=== PATIENT | female | born 1950 | race Caucasian/White ===

== ENCOUNTER → 2023-03-15 12:44 | Outpatient (CLI) | payer MEDICARE, SELFPAY ==
[2023-03-15 13:36] LABS: Add Manual Diff / Slide Review NO; Basophils Absolute Auto 100 /uL (0-100); Basophils Percent Auto 1.1 % (0-2); Eosinophils Absolute Auto 0 /uL (0-450); Eosinophils Percent Auto 0.9 % (2-4); Hematocrit 35.3 % (36-46); Hemoglobin 12.2 g/dL (12.0-16.0); Lymphocytes Absolute Auto 1400 /uL (1100-4500); Lymphocytes Percent Auto 26.1 % (25-40); Mean Corpuscular HGB Conc 34.6 % (30-36); Mean Corpuscular Hemoglobin 29.2 PG (26-34); Mean Corpuscular Volume 84.6 fL (80-100); Monocytes Absolute Auto 300 /uL (0-900); Monocytes Percent Auto 6.3 % (3-14); Neutrophils Absolute Auto 3400 /uL (1500-7000); Neutrophils Percent Auto 65.6 % (50-75); Platelet Count 202 X10^3/uL (150-400); Red Blood Cell Count 4.17 X10^6/uL (4.0-5.2); Red Cell Distribution Width 13.9 % (11.6-14.8); White Blood Cell Count 5.2 X10^3/uL (4.5-11.0)
[2023-03-15 14:00] LABS: BUN Creatinine Ratio 18.5 (6-22); Blood Urea Nitrogen 15 mg/dL (7-17); Calcium 9.3 mg/dL (8.4-10.2); Carbon Dioxide 27 mmol/L (22-32); Chloride 102 mmol/L (98-107); Estimated Glomerular Filt Rate > 60 mL/min (>60); Glucose 83 mg/dL (80-110); HEMOLYSIS 20 (0-50); Potassium 3.7 mmol/L (3.4-5.1); Sodium 136 mmol/L (137-145)
== END ==
PROVIDERS: PCP Family Medicine; Referring Provider Orthopaedic Surgery; Visit Provider Orthopaedic Surgery
DX: Z01.818 Encounter for other preprocedural examination (principal); Z01.812 Encounter for preprocedural laboratory examination
CPT/HCPCS: 36415; 80048; 85025; 93005; 93010

== ENCOUNTER 2023-04-01 09:58 | Inpatient (IN) | payer MEDICARE, SELFPAY ==
[2023-03-31 07:52] VITALS: BMI 24.5
[2023-04-01] VITALS (12 sets, daily range): BP systolic 123–180; BP diastolic 62–98; PULSE 64–82; RESP 11–17; TEMP 35.7–36.2; O2SAT 91–100; BMI 24.5
--- NOTE | 2023-04-01 06:00 | DI.RAD.S_ITS ---
PROCEDURE: XR SHOULDER RT 1V INDICATIONS: post-op TECHNIQUE: 1 views of the shoulder were acquired. COMPARISON: None. FINDINGS: Bones: Normal alignment of the right shoulder arthroplasty. Soft tissues: Superficial surgical changes present and appropriate. IMPRESSION: Right shoulder arthroplasty. Dictated by: Elias Holley M.D. on 04/01/2023 at 17:26 Approved by: Elias Holley M.D. on 04/01/2023 at 17:27
--- NOTE | 2023-04-01 10:06 | PM.PREOP ---
Pre-operative Note Interval Note History & Physical reviewed/Exam performed by Physician: Yes Changes to H&P: No
[2023-04-01] MEDS: LACTATED RINGERS 1,000 ML 42 ML IV ×2 (10:36→12:17)
[2023-04-01] MEDS: ACETAMINOPHEN 325 MG TABLET 975 MG PO (10:37)
[2023-04-01] MEDS: CEFAZOLIN 2 GM/100 ML PREMIX 100 ML IV ×2 (10:43→18:20)
[2023-04-01] MEDS: TRANEXAMIC ACID 1,000 MG VIAL 1000 MG INJ (11:05)
--- NOTE | 2023-04-01 11:23 | SUR.OPER ---
Beach chair with skytron shoulder positioner. Lower body on padded OR bed. Head in foam padded head cradle, secured with straps. Non-operative arm secured <90 degrees abduction. Pillow under knees. Safety belt at thigh. Cloth tape over blanket over lower legs.
[2023-04-01] MEDS: ROPIVACAINE/EPI/CLONIDINE/KET 50 ML SYRINGE INJ (11:34)
--- NOTE | 2023-04-01 12:15 | P.OP_ITS ---
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 Symptoms have been present for years, she never fully recovered from her initial surgery. Patient has failed conservative therapy including injections, physical therapy, anti-inflammatories and activity modification. After extensive discussion in clinic, they wished to go forward with surgery. Risks and benefits were described including the risk of infection, bleeding, damage to internal structures including nerves. We also discussed the risk of failure of surgery and the need for revision surgery as well as the risk of anesthesia. The patient expressed understanding with these risks and wished to go forward with surgery. Surgeon: Alin [facility] Teacher: Calixto Morse Anesthesia Type: General Operative Notes Findings: Findings: Intact supraspinatus and infraspinatus, insufficient subscap tendon, significant and eccentric wear of the glenoid Closure Type: primary Specimen(s): none sent Prosthetic devices, grafts, tissues, transplants, or devices: Tornier implants Base plate: standard 25 mm, full wedge Glenosphere: Standard 36 mm Stem: Perform 2+ Poly: +3 Estimated Blood Loss (mL): 50 Blood products transfused: none Procedure in detail: Patient was seen in the preoperative holding unit. The correct right shoulder was identified and marked with my initials. Again we discussed the risks and benefits of surgery and they wished to go forward with surgery. The patient was brought back to the operating room and placed supine on the operating table. Smooth endotracheal intubation was performed by anesthesia. All prominences were padded and they were placed into the beach chair position. Intravenous antibiotics were given. The right shoulder was then prepped with the standard sterile preparation and draping. A time-out was then performed in my initials were again identified on the correct shoulder. 1 g of IV tranexamic acid was given. A standard deltopectoral incision was made. Skin flaps were made. The cephalic vein was identified and retracted laterally. This was protected throughout the remainder of the case. Sharp dissection was made along the deltoid, subacromial and subcoracoid space to release adhesions. The conjoined tendon was identified and the axillary nerve was palpated and continuous using the tug test. It was protected throughout the remainder of the case. A brown retractor was placed underneath the deltoid muscle and a darach retractor underneath the conjoint tendon. The anterior circumflex artery and associated veins on the lower border of the subscapularis were identified and tied off using 0-Vicryl. The biceps tendon was identified in the bicipital groove. It had a previous tenodesis next to the old prosthesis. This was released from its sheath tied into the pectoralis tendon for a solid tenodesis. We then began a subscapularis peel from the remaining fibers however majority of the subscap was non-existent at this point. The coracoacromial ligament was left intact. The shoulder was then dislocated. The previous Farooq implant was then removed using a saw and osteotome. The rotator cuff was noted to be intact with regards to the supraspinatus. An intramedullary guide was used set at version of 20 ?. Using an oscillating saw a conservative humeral head cut was made. Impaction reamers were reamed up to a size 2 stem with a built-in angle 135?. A neck protector was placed. Attention was then turned to the glenoid. After retracting the humeral head posteriorly a circumferential release was performed of the capsule with protection of the axillary nerve. The labrum was then released starting at the biceps anchor and going around the rim a small amount of triceps was released from the inferior glenoid. A center guide pin was then placed using the guide, followed by Reamer. After adequate cartilage was removed the center drill hole was drilled and measured. The base plate was then implanted and screwed into place. The superior drill hole was drilled and filled in a nonlocking fashion, followed by the inferior and anterior holes in locking fashion, the posterior hole was also filled. A 36 standard glenosphere was then selected and screwed into place onto the base plate. Turning back to the humerus, the humeral head was delivered and trialed with a 0 concentric. The arm was taken through range of motion and this was felt to be stable. The trial was then removed and a dilute Betadine wash was then performed with 1 L of sterile saline. The final stem was then impacted into the humerus. The shoulder was then reduced and again brought through range of motion and was felt to be stable. As the subscapularis was insufficient, no repair was done. She had a good intact vein and so deltopectoral interval was not closed over top. The skin was closed with 2-0 Vicryl and Monocryl followed by Aquacel dressing. Patient was awoken from anesthesia and brought back to the postoperative recovery unit without issue. They were placed into a sling. Assisting participation: This operation could not have been safely performed (without compromising the technical results or length of the procedure) without the assistance of a skilled surgical specialist. The surgical specialist was medically necessary for proper positioning, retraction and manipulation of instruments, proper exposure, graft prep, and manipulation of tissue. Complications: none Post-operative Condition: stable Disposition: PACU Plan for aftercare: Postoperative instructions: Sling to remain on for 6 weeks. No external rotation past neutral for 6 weeks. Okay for the sling to come off for shower. Okay to shower over the Aquacel dressing. If any water gets underneath the dressing, remove the dressing. First postoperative visit in 2 weeks.
[2023-04-01] MEDS: IBUPROFEN 600 MG TABLET PO ×2 (13:48→17:49)
[2023-04-01] MEDS: OXYCODONE IR 5 MG TABLET PO ×2 (14:56→17:49)
--- NOTE | 2023-04-01 15:49 | PT-IP ANOTE ---
PT reviewed chart and checked on pt who is very lethargic and can only whisper at this time. There are no labs available and pt is very pale. Spoke with nsg and PT and nsg agree to hold PT this afternoon d/t pt presentation. Con't efforts next date.
[2023-04-01] MEDS: ASPIRIN EC 81 MG TABLET PO (21:57)
[2023-04-02] VITALS: BP 94/51; PULSE 60; RESP 17; TEMP 35.9; O2SAT 96
[2023-04-02] MEDS: IBUPROFEN 600 MG TABLET PO ×3 (00:31→11:41)
[2023-04-02] MEDS: OXYCODONE IR 5 MG TABLET PO (00:33)
[2023-04-02] MEDS: CEFAZOLIN 2 GM/100 ML PREMIX 100 ML IV (02:54)
[2023-04-02 04:00] VITALS: BP 106/60; PULSE 66; RESP 17; TEMP 35.7; O2SAT 95
[2023-04-02 04:34] LABS: Hematocrit 31.1 % (36-46); Hemoglobin 10.7 g/dL (12.0-16.0); Mean Corpuscular HGB Conc 34.4 % (30-36); Mean Corpuscular Hemoglobin 30.2 PG (26-34); Mean Corpuscular Volume 87.9 fL (80-100); Platelet Count 173 X10^3/uL (150-400); Red Blood Cell Count 3.54 X10^6/uL (4.0-5.2); Red Cell Distribution Width 14.3 % (11.6-14.8); White Blood Cell Count 9.3 X10^3/uL (4.5-11.0)
[2023-04-02 07:00] VITALS: BP 119/54; PULSE 59; RESP 16; TEMP 36.1; O2SAT 97
--- NOTE | 2023-04-02 07:55 | P.DS_ITS ---
History of Present Illness History of Present Illness Chief complaint: INPT Narrative: Marita is a pleasant 73-year-old female who is postop day #1 s/p Revision RIGHT shoulder hemiarthroplasty to a reverse total shoulder arthroplasty (glenoid and humeral side) by Dr. Mccurdy. She reports she is doing well overall, mild pain well controlled with oral pain medication. Reports that she had a very good night sleep last night after surgery. States she has her postop medications picked up already and plans to not use the oxycodone if she can avoid it, she will primarily manage her pain with ibuprofen and Tylenol alone. Has postop physical therapy appointment set up with Ruby RODRIGUEZ, 1st appointment is in about 10 days from now. Patient does live alone normally but plans to stay with a friend after coming home from the hospital and reports she has a large support system at home that will help her during her postop recovery peroid. She would like to be d/c to home today. Denies fever, chills, chest pain, shortness of breath, nausea, vomiting. 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 Symptoms have been present for years, she never fully recovered from her initial surgery. Patient has failed conservative therapy including injections, physical therapy, anti-inflammatories and activity modification. After extensive discussion in clinic, they wished to go forward with surgery. Risks and benefits were described including the risk of infection, bleeding, damage to internal structures including nerves. We also discussed the risk of failure of surgery and the need for revision surgery as well as the risk of anesthesia. The patient expressed understanding with these risks and wished to go forward with surgery. Surgeon: Alin Mccurdy Medical Editor: Calixto Morse Anesthesia Type: General Discharge Providers Provider Date of admission: 04/01/23 09:58 Discharge Date: 04/02/23 Primary care physician: Anay Stark MD Consults: 04/01/23 06:00 Consult to Anesthesiology Routine Comment: Consulting Provider: Anesthesiologist Reason for consultation: Regional block for post operative pain control 04/01/23 12:23 Consult to Discharge Planning Routine Comment: Consult to Physical Therapy Evaluate & Treat Comment: Physician Instructions: Evaluate and Treat Discharge provider: Lauren Soriano PA-C Summary Hospital Course Discharge Diagnosis: Stable s/p Revision right shoulder hemiarthroplasty to a reverse total shoulder arthroplasty Hospital Course: Uncomplicated hospital course Exam Vital Signs (past 8 hours): - 04/02/23 00:00 04/02/23 04:00 Temperature 96.7 F L 96.2 F L Pulse Rate 60 66 Respiratory Rate 17 17 Blood Pressure 94/51 L 106/60 Pulse Oximetry 96 95 Oxygen Flow Rate 0 0 Oxygen Delivery Method Room Air Oxygen Flow Rate 0 Narrative Exam Narrative: Lying comfortably in bed with right shoulder sling on. Const General: cooperative, healthy appearing and comfortable Resp Effort & Inspection: normal respiratory effort and able to speak in complete sentences Cardio Rate: regular rate Other: Extremities appear well perfused. Brisk capillary refill. Skin Other: Clean and dry Aquacel dressing over the right anterior shoulder. Neuro General: patient alert, patient awake and patient oriented x3 Speech: speech normal Other: Sensation intact throughout the right upper extremity. Objective Labs 04/02/23 04:00 Labs: Laboratory Results - last 24 hr 04/02/23 04:00 WBC 9.3 RBC 3.54 L Hgb 10.7 L Hct 31.1 L MCV 87.9 MCH 30.2 MCHC 34.4 RDW 14.3 Plt Count 173 PFSH Medical History (Updated 03/31/23 @ 08:15 by Mariam Resendiz RN) History of COVID-19 (~02/2023) Arthritis Eczema Anxiety Bleeds easily Easy bruisability Surgical History (Updated 03/31/23 @ 08:08 by Mariam Resendiz RN) History of carpal tunnel surgery of right wrist Hx of shoulder surgery (06/2020) Hx of blepharoplasty Hx of bilateral cataract extraction Social History household members: none Smoking Status: Former smoker alcohol intake: current Discharge Assessment & Plan Assessment and Plan Assessment: Stable s/p revision right shoulder hemiarthroplasty to a reverse total shoulder arthroplasty (glenoid and humeral side) Plan of Treatment: 1) Sling to remain on for 6 weeks (okay for the sling to come off to shower). No external rotation past neutral for 6 weeks. Continue to work on range of motion as indicated with outpatient PT. 2) Keep dressing intact, clean, dry until 2 week postop appointment. Okay to shower over the Aquacel dressing. If any water gets underneath the dressing, remove the dressing and replaced with clean dry gauze or contact office for replacement dressing. 3) Continue multimodal pain management. Ice to the shoulder for additional pain control. ASA b.i.d. for 4 weeks. Patients postop has prescriptions have been picked up already. Colace Rx sent today. 4)First postoperative visit in 2 weeks at [facility] orthopedics. Discharge Plan Discharge Plan Patient Disposition: Home Discharge orders & Medications Prescriptions: New hydrocodone-acetaminophen 5-325 mg tablet 1 tab PO Q6H PRN (Reason: pain) Qty: 20 0RF aspirin 81 mg tablet,chewable 81 mg PO BID 28 Days Qty: 56 0RF ibuprofen 600 mg tablet 600 mg PO Q6H PRN (Reason: pain) Qty: 60 0RF aspirin 81 mg Tablet,Delayed Release (Dr/Ec) 81 mg PO BID Qty: 90 0RF docusate sodium 100 mg Capsule 100 mg PO BID PRN (Reason: constipation) Qty: 30 0RF ibuprofen 600 mg Tablet 600 mg PO Q6H Qty: 90 0RF ondansetron 4 mg Tablet,Disintegrating 4 mg PO Q4HR PRN (Reason: Nausea And Vomiting) 14 Days Qty: 14 0RF oxycodone 5 mg Tablet 5 mg PO Q4-6H PRN (Reason: Pain, Moderate (4-6)) Qty: 30 0RF Continued escitalopram oxalate 10 mg Tablet 10 mg PO DAILY Medication counseling provided by Pharmacist: Yes Pharmacist Comment: You can mix Oxycodone and acetaminophen together or take separately. Max acetaminophen a day is 3,00mg. Max Ibuprofen a day is 2,400mg. Follow up/Referrals: Lauren Soriano PA-C [[employer]] - Alin Mccurdy MD [Physician] - (Follow up in 2 weeks as scheduled. ) Anay Stark MD [Primary Care Provider] - Diet/Activity/Treatments Diet: Diet as Tolerated Activity: Sling to remain on for 6 weeks. No external rotation past neutral for 6 weeks. Okay for the sling to come off for shower. Work with outpatient physical therapy on appropriate range of motion exercises. Cold/Heat Therapy: Ice to the shoulder for additional pain control Skin/Wound/Dressing Care Report to your healthcare provider any signs of infection, such as:: chills, fever, night sweats, unusual drainage and unusual redness Dressing: Aquacel dressing to remain in place for 2 weeks, keep dressing clean and dry. Okay to shower over the Aquacel dressing. If any water gets underneath the dressing, remove the dressing and replace with clean and dry gauze or call our office for replacement dressing. Visit Report/Discharge Packet Instructions: DI for Prescription Opioid Use, DI for Shoulder Replacement Stand Alone Forms: Patient Portal/API, Stroke Signs & Symptoms Discharge Data Primary Care Provider: Anay Stark VTE Deep Vein Thrombosis/Pulmonary Embolism Present on Admission: No
[2023-04-02] MEDS: DOCUSATE 100 MG CAPSULE PO (08:04)
[2023-04-02] MEDS: ASPIRIN EC 81 MG TABLET PO (08:04)
[2023-04-02] MEDS: polyethylene glycoL 3350 17 GM POWD.PACK PO (08:04)
--- NOTE | 2023-04-02 08:50 | PT.IIE ---
Current Diagnoses Presence of right artificial shoulder joint (04/01/23) Surgery Performed Operation Date: 04/01/23 10:15 Actual Procedures p Total Shoulder Arthroplasty - Reverse with biceps tenodesis(Right) - Alin Mccurdy MD Surgical History (Last Updated 03/31/23 @ 08:08 by Mariam Resendiz, RN) History of carpal tunnel surgery of right wrist Hx of bilateral cataract extraction Hx of blepharoplasty Hx of shoulder surgery (06/2020) Medical History (Last Updated 03/31/23 @ 08:15 by Mariam Resendiz RN) Anxiety Arthritis Bleeds easily Easy bruisability Eczema History of COVID-19 (~02/2023) Physical Therapy Inpatient Evaluation/Re-Eval M1 PT/OT-IP Prior Functional Status Start: 04/01/23 15:36 Freq: NEEDED Status: Active Protocol: Document 04/02/23 08:50 AB (Rec: 04/02/23 12:30 AB [id number]) Medical Review Prior Functional Status Medical History Reviewed Yes Communication able to make needs known Mobility and Gait pt stated that she was independent with all mobilities and ambulation without AD Social History Household Members none Living Arrangements House Number of Floors (Floors) Two Floors Number of Stairs To Enter/Railing? pt plans to go to her brother' s house upon d/c. info below is regarding brother's home set up pt plans to stay on the main level of the house no steps to enter Home Environment High Toilet,Tub/Shower Home Equipment Straight Cane,Lift Recliner, Grab Bars In Shower Additional Social History Comment pt plans to go to her brother' s house and family can assist her pt plans to do sponge bathing and sleep on a lift chair M2 PT-IP Current Condition Start: 04/01/23 15:36 Freq: NEEDED Status: Active Protocol: Document 04/02/23 08:50 AB (Rec: 04/02/23 12:30 AB [id number]) Physical Therapy Current Condition Current Condition Evaluation Date 04/02/23 Treatment Diagnosis s/p R TSA reverse; difficulty in walking Onset Date 04/01/23 M3 PT-IP Subjective Start: 04/01/23 15:36 Freq: NEEDED Status: Active Protocol: Document 04/02/23 08:50 AB (Rec: 04/02/23 12:30 AB [id number]) Subjective Physical Therapy Visit Type Type Initial Evaluation Visit Start Time 08:50 Visit Stop Time 10:10 Number of VASCULAR NEUROLOGIST Visits 0 Physical Therapy Visit Comments Patient Comments initially stating that she does not think she need PT and also concerned about payment; pt eventually agreed to PT Therapy Pain Assessment Pain When Pain Assessed At Rest Pain Present Pain Present Pain Reported Location Right Shoulder Intensity 2 Scale Used Numeric (0 - 10) Pain Management Techniques Distraction,Modification of Treatment,Re-positioning, Timing of Activity with Medications M4 PT-IP Mobility and Gait Start: 04/01/23 15:36 Freq: NEEDED Status: Active Protocol: Document 04/02/23 08:50 AB (Rec: 04/02/23 12:30 AB [id number]) PT-Bed Mobility Assessment Supine to Sit Supine to Sit Moderate Assistance PT-Transfer Assessment Sit to and From Stand Sit to and from Stand Contact Guard Assistance,Use of Upper Extremities Equipment Transfer Assistive Device None,Gait Belt Orthotic/Prosthetic Devices or Brace: Yes Transfers Transfer Destination Toilet Transfer Technique ambulated Transfer Ability Level of Assist Contact Guard Assistance, Minimal Assistance,1 Person Assistance,Use of Upper Extremities Comments Mobility Comments pt spinein bed. sling on. initially stated that she does not think she need PT. explained to pt regarding PT in hospital and d/c plans and safety. pt agreed to do PT. educated pt on shoulder precautions, pendulum exercises, elbow/wrist/hand exercises. pt stated that she really needs to use the the toilet. completed supine to sit HOB elevated mod A and cues. able to sit on EOB SBA. completed sit to stand CGA and ambulated to the toilet without AD initially CGA but with (+) LOB x 3 requiring min A for recovery and safety. pt completed toileting SBA. sit to stand from the toilet CGA and ambulated to the sink without AD CGA to min A. continues to have an unsteady gait. pt sat on the chair. educated on sling management and assisted with adjustment. completed elbow/hand/wrist exercises. pt c/o feeling faint. positioned on the chair and reclined. BP checked: 107/55. reclined pt further and pt rested. assisted pt with sling management. call light and table placed within reach. BP checked again: 113/65 set up caregiver training this afternoon at 1 pm. Gait Assessment Gait Gait Assistance Required: Contact Guard Assist,Minimum Assistance Distance (Feet) 25 Able to Maintain Weight Bearing Status Yes During Gait Assistive Devices Assistive Device None,Gait Belt Orthotic/Prosthetic Devices or Brace: Yes Gait Deviations General Gait Pattern Decreased Stride Length, Decreased Feet Clearance,Step- to Gait Factors Limiting Gait Function Factors Limiting Gait Function Decreased Activity Tolerance, Decreased Sensation,Decreased Strength,Limited Range of Motion,Pain,Poor Balance,Poor Safety Awareness PT-Balance Assessment Sitting Balance and Reactions Static Sitting Balance Ability Normal Dynamic Sitting Balance Ability Good Standing Balance and Reactions Static Standing Balance Ability Fair Dynamic Standing Balance Ability Fair Device Used without AD M5 PT-IP Objective Assessments Start: 04/01/23 15:36 Freq: NEEDED Status: Active Protocol: Document 04/02/23 08:50 AB (Rec: 04/02/23 12:30 AB [id number]) Orientation Orientation/Cognition Level of Alertness Alert Orientation Name,Place,Situation Language Function Ability No Deficits Noted Safety Awareness Decreased Safety Awareness Memory Description Short Term Impaired Gross Range of Motion Lower Extremity ROM Assessment Within Functional Limits Strength Comments Strength Comments LLE: 4/5 RLE: 4-/5 Sensation Assessment Sensation Sensation Description Numbness Comments Sensation Comments c/o slight numbness on R elbow Muscle Tone Muscle Tone WNL Yes M6 PT-IP Treatment Start: 04/01/23 15:36 Freq: NEEDED Status: Active Protocol: Document 04/02/23 08:50 AB (Rec: 04/02/23 12:30 AB [id number]) Physical Therapy Treatment Exercises Exercises Shoulder Pendulums,Elbow Flexion/Extension,Wrist ROM, Hand ROM Education Education Provided Precautions,Weight Bearing Status,Post-Op Packet,Safety M7 PT-IP Assessment and Plan Start: 04/01/23 15:36 Freq: NEEDED Status: Active Protocol: Document 04/02/23 08:50 AB (Rec: 04/02/23 12:30 AB [id number]) PT Summary Assessment and Plan Potential Rehabilitation Potential Fair Status of Condition at Evaluation Evolving Summary Impairments Pain,ROM,Strength,Balance, Coordination,Sensation,Tone, Cognition,Bed Mobility, Transfers,Gait,Activity Tolerance Assessment Summary pt is a 73 y/o F s/p R TSA reverse POD 1. pt with R shoulder precautions and is NWB on RUE. pt requiring CGA to min A with ambulation without AD. pt presents with unsteady gait with (+) LOB. will assess ambulation using SPC this afternoon. pt with episode of feeling faint during PT session. caregiver training set up for this afternoon at 1 pm. will continue to assess. Goals Bed Mobility Goal Independent Transfer Goal Independent Gait Goal Independent Gait Distance 200 Days to Meet Goals 5 Frequency of Treatment Frequency Of Treatment Twice a Day Treatment Plan Physical Therapy Treatment Plan Bed Mobility Training,Transfer Training,Gait Training, Therapeutic Exercise,Balance Retraining,Post Op Education, Discharge Planning,Hot or Cold Pack,Neuromuscular Re-ed, Coordination Retraining,Manual Therapy Precautions Shoulder Precautions Sling,PROM,Internal Rotation to Body,No External Rotation, No Abduction,Forward Flexion to 90 degrees,Pendulums Weight Bearing Status Weight Bearing Status Non-Weight Bearing Allowed Weight Bearing Amount (enter % RUE NWB or #) (%) Recommendations To Nursing Amount of Assist Needed 1 Person Assist Discharge Recommendations PT Discharge Recommendations Home with 31/08 Assist Available,Outpatient PT Transportation Needs at Discharge Private Vehicle
--- NOTE | 2023-04-02 08:58 | CM.DANOTE ---
Initial DCP Assessment Note Reviewed EMR and team rounds for status updates. Met with pt at bedside to introduce self and role. Pt found to be awake, oriented, expressing feeling ready for d/c once she has worked with PT later this morning. Her brother will transport her home. Payor: [facility] Attending: Dr. Mccurdy Pt is a 73 year-old F admitted to the floor post R-shoulder arthroplasty. She was pale and not ready for d/c yesterday after her surgery, but is found today to be back at her baseline. No therapy recommendations for OP indicated at this time, pt has her scheduled post-op appointment setup with Ortho, has necessary DME at home, brother will assist her with care needs once home. No further DCP needs indicated at this time. Discharge Planning/Care Management CM Discharge Assessment Start: 04/02/23 08:40 Freq: Status: Active Protocol: Document 04/02/23 08:50 DPL (Rec: 04/02/23 08:52 DPL [id number]) Discharge Planning Assessment Assigned Drafter Detail NUHA Funes Advance Directives? Yes Advance Directives on File No History Provided By Patient,Medical Record Has Patient been admitted in last 30 No days? Prior Living Arrangements Apartment/Condo Household Members none Type of transporation used prior to Drives own vehicle admit Independent with ADL's Yes Is patient alert and oriented? Yes Comment N/A Caregiver for Another No Comment None Barriers to Discharge No Discharge Plan Home Transportation Arrangement Brother Referrals Initiated None needed Additional Comment Pt will follow up with Ortho postoperatively. No PT/OT recommended at this time. Whiteboard Updated in Patient Room with Yes name and ext. # of Drafter Detail Review Status In Process Please Provide Date Initial DC 04/02/23 Assessment Was Performed Pre-Anesthesia Assessment Start: 03/31/23 07:52 Freq: Status: Complete Protocol: Document 03/31/23 07:52 CAB (Rec: 03/31/23 08:29 CAB [id number]) Pre-Anesthesia Assessment Preferred Name Lan Patient Information Reviewed Via Phone Assessment Assessment Completed With Patient Diagnostic Results BMP/CMP,CBC,EKG Comment Labs/EKG @ 03/15/23 Primary Care Provider Anay Stark Seen Specialist in Last 12 Months Yes Specialist Seen Customer Care Representative,Opthamologist/ Fire Prevention Forester,Orthopedist Primary Language Haitian Orthotic/Prosthetic Practitioner Required No Height 158.75 cm Weight 61.689 kg Body Mass Index (BMI) 24.5 Hearing Ability Normal Visual Assist Glasses Dentition Type Teeth, Natural Present Barriers to Learning None 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 No Does patient have GREGG/SOB No Hx Sleep Apnea No Currently Taking a Beta James No Hx Chest Pain No Hx SOB No Hx Syncope or Dizziness Yes: A little dizziness with quick positional changes Anti-Coagulant Therapy No Has a Charging Board Operator No Cardiac Testing No Hx Pacemaker/ICD No Pacemaker Rep Required? No Cardiac Clearance Received Not Applicable Diet Type At Home Regular,Vegetarian Dysphagia No Gastrointestinal Symptoms None Chronic UTI No Urinary Catheter Present No Hx Urinary Self Catheterization No Diabetes No Patient No Lactating No Hx Drug Resistant Organism No Presence of External or Internal Medical Yes: Bilat eye IOLs, right Devices shoulder Received a COVID vaccine? Yes Received all doses? Yes Marital Status Lives With none Current Living Arrangements Apartment/Condo Support System Sibling(s),Other Comment Plans to go to brother's house at [place] Does the Patient Have Assistance After Yes Surgery Patient Discharge Plan Description Other Comment Pt advised same day to overnight length of stay per surgeon Feels Safe in Current Environment Yes Been Physically Hurt or Threatened By a No Person in Current Environment Do you have thoughts of harming yourself None or others? Are you currently considering suicide? No Do you have a plan to hurt yourself or No Plan others? Do You Have Any Spiritual Beliefs That No May Affect Your HC Choices? Do You Have Any Cultural Practices That No May Affect Your HC Choices? Who Can We Speak to About Patient's Care Family, friends Identifying Code for Release of Patient Declines to issue Information Health Care Proxy/Next of Kin Bob Sidhu (brother) Health Care Proxy Emergency Contact Name Rogelio Wilkerson (good friend) Emergency Contact Advance Directives? Yes Advance Directives on File No Requested Patient Bring Advanced Yes Directives DOS Power of Bdc Manager Yes Power of Bdc Manager Name Pt does not remember name PAC Instructions Do not shave/clip surgical site,Durable medical equipment ,Medications to take/avoid, Nasal antibiotic,No ETOH/ petroleum product on skin DOS, NPO,Post-op transportation,Pre -surgical wash,Sensory aids, Sturdy shoes/comfortable clothes,Do not bring valuables and remove jewelry Comment Pt not given instructions on nasal abx or surgical scrub by surgeon office
[2023-04-02 12:00] VITALS: BP 135/77; PULSE 81; RESP 16; TEMP 36.2; O2SAT 95
--- NOTE | 2023-04-02 13:04 | PT.IPTN ---
Current Diagnoses Presence of right artificial shoulder joint (04/01/23) Surgery Performed Operation Date: 04/01/23 10:15 Actual Procedures p Total Shoulder Arthroplasty - Reverse with biceps tenodesis(Right) - Alin Mccurdy MD Physical Therapy Treatment Note M2 PT-IP Current Condition Start: 04/01/23 15:36 Freq: NEEDED Status: Discharge Protocol: Document 04/02/23 08:50 AB (Rec: 04/02/23 12:30 AB [id number]) Physical Therapy Current Condition Current Condition Evaluation Date 04/02/23 Treatment Diagnosis s/p R TSA reverse; difficulty in walking Onset Date 04/01/23 M3 PT-IP Subjective Start: 04/01/23 15:36 Freq: NEEDED Status: Discharge Protocol: Document 04/02/23 13:04 AB (Rec: 04/02/23 16:16 AB [id number]) Subjective Physical Therapy Visit Type Type Treatment Note Visit Start Time 13:04 Visit Stop Time 14:00 Number of WATER QUALITY TECHNICIAN Visits 0 Physical Therapy Visit Comments Patient Comments agreeable to do PT Therapy Pain Assessment Pain When Pain Assessed At Rest Pain Present Pain Present Pain Reported Location Right Shoulder Scale Used pain scale not stated Pain Management Techniques Distraction,Modification of Treatment,Timing of Activity with Medications M4 PT-IP Mobility and Gait Start: 04/01/23 15:36 Freq: NEEDED Status: Discharge Protocol: Document 04/02/23 13:04 AB (Rec: 04/02/23 16:16 AB [id number]) PT-Bed Mobility Assessment Supine to Sit Supine to Sit Standby Assistance Sit to Supine Sit to Supine Standby Assistance PT-Transfer Assessment Sit to and From Stand Sit to and from Stand Standby Assistance,1 Person Assistance,Use of Upper Extremities Equipment Transfer Assistive Device None,Gait Belt,Straight Cane Orthotic/Prosthetic Devices or Brace: Yes Transfers Transfer Destination Bed,Chair Transfer Technique ambulated Transfer Ability Level of Assist Standby Assistance,Contact Guard Assistance,Use of Upper Extremities Comments Mobility Comments pt sitting on the chair. pt's brother and [id number] in room with pt. educated family regarding pt's shoulder precautions, HEP. pt completed elbow/wrist/hand exercises again. educated pt's brother on sling management. pt's brother initially was needing cues on how to manage sling but was able to jose enrique on 2nd try. pt ambulated in room without AD CGA and continues to present unsteady antalgic gait but without LOB this time. assessed ambulation using SPC SBA with steady gait and normal strides. educated pt on safety and use of SPC at this time and pt agreed. pt and family without further concerns. Gait Assessment Gait Gait Assistance Required: Standby Assistance,Contact Guard Assist Distance (Feet) 40 Able to Maintain Weight Bearing Status Yes During Gait Assistive Devices Assistive Device None,Gait Belt,Straight Cane Orthotic/Prosthetic Devices or Brace: Yes Gait Deviations General Gait Pattern Decreased Stride Length, Decreased Feet Clearance Factors Limiting Gait Function Factors Limiting Gait Function Decreased Activity Tolerance, Decreased Strength,Limited Range of Motion,Pain,Poor Balance,Poor Safety Awareness M5 PT-IP Objective Assessments Start: 04/01/23 15:36 Freq: NEEDED Status: Discharge Protocol: Document 04/02/23 08:50 AB (Rec: 04/02/23 12:30 AB [id number]) Orientation Orientation/Cognition Level of Alertness Alert Orientation Name,Place,Situation Language Function Ability No Deficits Noted Safety Awareness Decreased Safety Awareness Memory Description Short Term Impaired Gross Range of Motion Lower Extremity ROM Assessment Within Functional Limits Strength Comments Strength Comments LLE: 4/5 RLE: 4-/5 Sensation Assessment Sensation Sensation Description Numbness Comments Sensation Comments c/o slight numbness on R elbow Muscle Tone Muscle Tone WNL Yes M6 PT-IP Treatment Start: 04/01/23 15:36 Freq: NEEDED Status: Discharge Protocol: Document 04/02/23 13:04 AB (Rec: 04/02/23 16:16 AB [id number]) Physical Therapy Treatment Exercises Exercises Shoulder Pendulums,Elbow Flexion/Extension,Wrist ROM, Hand ROM Education Education Provided Precautions,Weight Bearing Status,Post-Op Packet,Safety M7 PT-IP Assessment and Plan Start: 04/01/23 15:36 Freq: NEEDED Status: Discharge Protocol: Document 04/02/23 13:04 AB (Rec: 04/02/23 16:16 AB [id number]) PT Summary Assessment and Plan Potential Rehabilitation Potential Good Summary Progress Towards Goals Progressing Toward Goals Assessment Summary caregiver training conducted and pt's brother will be able to assist pt. pt requiring SBA with ambulation using SPC and recommended use of SPC at this time for safety. pt may go home when medically stable. Goals Bed Mobility Goal Independent Transfer Goal Independent Gait Goal Independent Gait Distance 200 Days to Meet Goals 5 Frequency of Treatment Frequency Of Treatment Twice a Day Treatment Plan Physical Therapy Treatment Plan Bed Mobility Training,Transfer Training,Gait Training, Therapeutic Exercise,Balance Retraining,Post Op Education, Discharge Planning,Hot or Cold Pack,Neuromuscular Re-ed, Coordination Retraining,Manual Therapy Precautions Shoulder Precautions Sling,PROM,Internal Rotation to Body,No External Rotation, No Abduction,Forward Flexion to 90 degrees,Pendulums Weight Bearing Status Weight Bearing Status Non-Weight Bearing Allowed Weight Bearing Amount (enter % RUE NWB or #) (%) Recommendations To Nursing Amount of Assist Needed 1 Person Assist Discharge Recommendations PT Discharge Recommendations Home with 31/08 Assist Available,Outpatient PT Transportation Needs at Discharge Private Vehicle
== END 2023-04-02 14:26 | disposition home or self-care (01) | DRG 483 ==
PROVIDERS: Admitting Provider Orthopaedic Surgery; PCP Family Medicine; Referring Provider Orthopaedic Surgery; Visit Provider Orthopaedic Surgery
PROC: 0RPJ0JZ Removal of Synthetic Substitute from Right Shoulder Joint, Open Approach (ICD-10-PCS; CPT 23472; principal; 2023-04-01 10:15)
DX: T84.84XA Pain due to internal orthopedic prosthetic devices, implants and grafts, initial encounter (principal); F41.9 Anxiety disorder, unspecified; Z87.891 Personal history of nicotine dependence
CPT/HCPCS: 36415; 73020; 85027; 97116; 97162; 97530; C1776; J0330; J0690; J1100; J1170; J2405; J2704; J3010